=== PATIENT | female | born 1955 | race Caucasian/White ===

== ENCOUNTER 2019-08-07 05:04 | Day surgery (SDC) | payer OTHER ==
[~2019-08-07 05:04] MED LIST: ASPIR 8181 MG; CARVEDILOL25 MG; COZAAR25 MG; FOLIC ACID0.8 M1; FOLTX TABLET1 EACH; GLIMEPIRIDE4 MG; JANUVIA50 MG; SLOW-MAG64 M1; SYNTHROID75 MCG; VITAMINA D3; [UNRECOGNIZED DRUG - OTHER]
== END 2019-08-07 14:10 | disposition home or self-care (01) ==
LOC: CIR.AMB 05:04
DX: H90.11 Conductive hearing loss, unilateral, right ear, with unrestricted hearing on the contralateral side (principal); H74.11 Adhesive right middle ear disease

== ENCOUNTER 2025-04-23 05:40 | Day surgery (SDC) | payer OTHER ==
[2025-04-17 07:38] VITALS: BP 169/67
[2025-04-17 07:55] LABS: BASO % 0.6 % (0.1-1.2); EOS # 0.29 (0.04-0.54); EOS % 3.4 % (0.7-7.0); HEMATOCRIT 34.7 % (34.1-44.9); HEMOGLOBIN 11.4 g/dL (11.2-15.7); LYMPH # 1.71 (1.18-3.74); LYMPH % 20.1 % (19.3-53.1); MEAN CORPUSCULAR HEMOGLOBIN 30.2 pg (25.6-32.2); MONO # 0.69 (0.24-0.82); MONO % 8.1 % (4.7-12.5); NEUT # 5.72 (1.56-6.13); NEUT % 67.4 % (34.0-71.1); PLATELET COUNT 254 K/uL (163-369); RED BLOOD COUNT 3.77 M/uL (3.93-5.22); RED CELL DISTRIBUTION WIDTH 13.5 % (11.6-14.4); URINE APPEARANCE Clear; URINE BILIRRUBIN Negative (NEGATIVE); URINE BLOOD Negative; URINE COLOR Yellow; URINE KETONE Negative (NEGATIVE); URINE LEUKOCYTE Negative; URINE NITRATE Negative; URINE PROTEIN Negative (NEGATIVE); URINE UROBILINOGEN 0.2 E.U./dl
[2025-04-17 07:59] LABS: URINE BACTERIA 12.2 uL (0.0-1933); URINE EPITHELIAL CELLS 9.3 uL (0.0-38.8); URINE WBC 7.7 uL (0.0-23.2)
[2025-04-17 08:03] LABS: URINE GLUCOSE >=1000 MG/DL (NEGATIVE); URINE RBC 0.7 uL (0.0-20.8)
[2025-04-17 08:17] LABS: COVID-19 AG NEGATIVE (NEGATIVE)
[2025-04-17 08:29] LABS: ALBUMIN 3.9 gm/dL (3.4-5.0); BILIRUBIN TOTAL 1.01 mg/dL (0.3-1.2); CALCIUM 9.9 mg/dL (8.5-10.1); CREATININE SERUM 1.44 mg/dL (0.55-1.02); GFR 36.2; GLOBULINA 3.3 G/DL (2.4-3.5); POTASSIUM 4.87 mEq/L (3.5-5.1); TOTAL PROTEIN 7.2 gm/dL (6.4-8.2)
[2025-04-17 08:42] LABS: INR 0.97; PROTHROMBIN TIME 10.6 SECONDS (9.0-11.5)
[~2025-04-23] VITALS: Ht 157.5 cm; Wt 71.2 kg
[~2025-04-23 05:40] MED LIST changes: +AMLODIPINE-OLM1 EAC3; +ATACAND HCT 321 EAC1; +FARXIGA10 MG; +GLIMEPIRIDE4 M1; +HYDROCHLOROTHIA25 MG; +JANUMET 50-1,01 EACH; +LANTUS SOL100 UNIT/1; +SPIRONOLACTONE25 MG
[2025-04-23] MEDS ORDERED: CEFAZOLIN SODIUM 1,000 MG VIAL ONE (08:39)
[2025-04-23] MEDS ORDERED: EPINEPHRINE HCL/PF 1 MG/ML AMPUL ONE ×2 (09:55→11:16)
[2025-04-23] MEDS ORDERED: POVIDONE-IODINE SCRUB 118 ML BOTT TOP ONE (10:15)
[2025-04-23] MEDS ORDERED: POVIDONE-IODINE 118 ML BOTT TOP ONE (11:45)
[2025-04-23] MEDS ORDERED: BACITRACIN 28.35 GM OINT.TUBE TOP ONE (11:45)
[2025-04-23] MEDS ORDERED: CIPROFLOXACIN HCL 0.175 MG/DR DROPS OP ONE (12:15)
[2025-04-23] MEDS ORDERED: KETOROLAC TROMETHAMINE 60 MG VIAL IM PRN (13:15)
[2025-04-23] MEDS ORDERED: PROMETHAZINE HCL 25 MG/ML AMPUL IM ONE (13:15)
[2025-04-23] MEDS ORDERED: MORPHINE SULFATE 4 MG/ML VIAL IV ONE (14:40)
== END 2025-04-23 16:05 | disposition home or self-care (01) ==
LOC: CIR.AMB 05:40
PROVIDERS: ATTEND Otolaryngology Otology & Neurotology
DX: H90.71 Mixed conductive and sensorineural hearing loss, unilateral, right ear, with unrestricted hearing on the contralateral side (principal); H72.01 Central perforation of tympanic membrane, right ear